=== PATIENT | male | born 1965 | race Caucasian/White ===

== ENCOUNTER → 2016-10-03 | Outpatient (CLI) | payer BC | END | disposition home or self-care (01) | LOC: LAB 08:43 | PROVIDERS: ATTEND Nurse Practitioner Occupational Health | DX: Z12.5 Encounter for screening for malignant neoplasm of prostate (principal) | CPT/HCPCS: 36415; G0103 ==

== ENCOUNTER → 2016-10-10 | Outpatient (CLI) | payer BC ==
--- NOTE | 2016-10-10 16:08 | KCIC ---
PROCEDURE Renal ultrasound. HISTORY Enlarged prostate. TECHNIQUE Renal ultrasound was performed. COMPARISON None. FINDINGS Right kidney measures at least 11.7 centimeters in length and the left 11.6 centimeters. 19 millimeter cyst with septation is noted in the left kidney inferiorly. Septation is thin. No nodular component is present. Bladder is mildly distended and grossly unremarkable. Prostate measures 4.0 x 4.1 x 4.1 centimeters, minimally indenting on the floor the bladder. Incidentally, there is fatty infiltration of the liver. IMPRESSION - Cyst with thin septation in the left kidney measuring 19 millimeters in size. Finding was described on a CT report from July 18, 2011, those images were not available at the time of dictation. - Prostate minimally indents on the floor the bladder, although measures within normal limits. Electronically signed by: Paul Alonzo MD (October 10, 2016 16:06:59)
== END | disposition home or self-care (01) ==
LOC: KCIC US 11:56
PROVIDERS: ATTEND Nurse Practitioner Occupational Health
DX: N40.1 Benign prostatic hyperplasia with lower urinary tract symptoms (principal)
CPT/HCPCS: 76770

== ENCOUNTER → 2018-01-01 | Outpatient (CLI) | payer BC | END | disposition home or self-care (01) | LOC: KCIC US 07:47 | DX: M79.661 Pain in right lower leg (principal) | CPT/HCPCS: 93971 ==

== ENCOUNTER → 2018-02-05 | Outpatient (CLI) | payer BC ==
--- NOTE | 2018-02-05 14:23 | RAD ---
MR#: [id number] Date of Study: 02/05/2018 Ordering Physician: RYAN CHISHOLM, Referring Physician: RYAN CHISHOLM, Tech: NAS Keyes, RDMS, RTR APPROVED REPORT Patient Location : OUT-PATIENT Indications Lower Extremity Pain : Bilateral Past History Diabetes Lesser Saphenous Veins (LSV) Right Thigh extension noted : No Leftt Thigh extension noted : No Right Giacomini Vein : Present : No Reflux : No Leftt Giacomini Vein : Present : No Reflux : No Accessory Veins Right Anterior Accessory Vein : Present : Yes Reflux : No Leftt Anterior Accessory Vein : Present : Yes Reflux : No Right Posterior Accessory Vein : Present : No Reflux : No Left Posterior Accessory Vein : Present : No Reflux : No Findings Grayscale images of the bilateral greater and lesser saphenous veins do not reveal any obvious eviden ce of thrombus on limited imaging. There is no evidence of reflux. Critical Notification Critical Value: No <Conclusion> Negative for reflux in the bilateral greater and lesser saphenous veins. Signed by : Shon Romero, Electronically Approved : 02/05/2018 14:23:34
--- NOTE | 2018-02-05 14:25 | RAD ---
MR#: [id number] Date of Study: 02/05/2018 Ordering Physician: RYAN CHISHOLM, Referring Physician: RYAN CHISHOLM, Tech: NAS Keyes, RDMS, RTR APPROVED REPORT Patient Location: OUT-PATIENT Indications Rest Pain:Right Numbness/Tingling Risk Factors Hypertension Diabetes VELOCITY AND DOPPLER WAVEFORM ANALYSIS RIGHT cm/secWaveformSeverity LEFT cm/secWaveform Severity pCFA 164.3TriphasicpCFA 149.9Triphasic Prof Fem Art. 95.7TriphasicProf Fem Art. 136.0Triphasic Fem Art Prox. 131.5TriphasicFem Art Prox. 123.1Triphasic Fem Art Mid. 107.4TriphasicFem Art Mid. 105.5Triphasic Fem Art Dist. 118.5TriphasicFem Art Dist. 86.1Triphasic Pop Art(Fossa) 55.5TriphasicPop Art(AK) 73.3Triphasic ARSON AND BOMB INVESTIGATOR Dist. 95.1TriphasicPTA Dist. 117.6Triphasic Per Art Dist.64.8TriphasicPer Art Dist.47.7Triphasic JEFFREY Dist. 86.8TriphasicATA Dist. 72.0Triphasic DPA 99TriphasicDPA 123Triphasic Findings Grayscale images of the bilateral lower extremity arterial vessels reveal mild intimal hyperplasia wi thout any focal obstructive plaque. Spectral waveforms and color Doppler are grossly unremarkable thr oughout the lower extremity arterial trees with triphasic waveforms noted throughout. There is three- vessel runoff below the knee. Critical Notification Critical Value: No <Conclusion> No significant lower extremity arterial disease. Signed by : Shon Romero, Electronically Approved : 02/05/2018 14:25:02
== END | disposition home or self-care (01) ==
LOC: US 07:51
PROVIDERS: ATTEND Internal Medicine Cardiovascular Disease
DX: M79.605 Pain in left leg (principal); M79.604 Pain in right leg; I10 Essential (primary) hypertension; E11.9 Type 2 diabetes mellitus without complications
CPT/HCPCS: 93925; 93970

== ENCOUNTER → 2018-02-05 | Outpatient (CLI) | payer BC ==
--- NOTE | 2018-02-05 10:03 | CARD ---
MR#: [id number] Date of Study: 02/05/2018 Ordering Physician: RYAN BRADFORD, Referring Physician: Malgorzata DELGADO: DIONNA Ontiveros APPROVED REPORT EXAM: Two-dimensional and M-mode echocardiogram with Doppler and color Doppler. Other Information Quality : AverageHR: 59bpm INDICATION Hypertension/HCVD RISK FACTORS Hypertension 2D DIMENSIONS RVDd3.0 (2.9-3.5cm)Left Atrium(2D)3.6 (1.6-4.0cm) IVSd1.1 (0.7-1.1cm)Aortic Root(2D)2.6 (2.0-3.7cm) LVDd4.4 (3.9-5.9cm)LVOT Diameter2.0 (1.8-2.4cm) PWd1.0 (0.7-1.1cm)IVSs1.2 (0.8-1.2cm) LVDs2.9 (2.5-4.0cm)FS (%) 33.7 % PWs1.6 (0.8-1.2cm)SV55.9 ml LVEF(%)62.7 (>50%) Aortic Valve AoV Peak Chuck.149.1cm/sAoV VTI32.4cm AO Peak GR.8.9mmHgLVOT Peak Chuck.66.9cm/s LVOT VTI 16.88cmAO Mean GR.5mmHg ARELIS (VMAX)1.63bu5LXX (VTI)1.70cm2 Mitral Valve MV E Swaaslph97.6cm/sMV DECEL KXMI538ki MV A Yvtngjku18.0cm/sMV FAA25xe E/A Ratio1.4MVA (PHT)4.21cm2 TDI E/Lateral E'8.5E/Medial E'11.8 Pulmonary Valve PV Peak Bnjlpvec194.0cm/sPV Peak Grad.5mmHg RVOT VTI24.4cm Tricuspid Valve TR P. Xflwciqs335wy/sRAP IARBKTZG4mnSl TR Peak Gr.32msQcIYDK88mjWe Pulmonary Vein S1 Lcyaqyfc65.6cm/sD2 Vetddypt56.5cm/s LEFT VENTRICLE The left ventricle is normal size. There is normal left ventricular wall thickness. The left ventricu lar systolic function is normal. The ejection fraction is estimated at 60%. There is normal LV segmen kisha wall motion. The left ventricular diastolic function and filling is normal for age. RIGHT VENTRICLE The right ventricle is normal size. The right ventricular systolic function is normal. ATRIA The left atrium size is normal. The right atrium size is normal. The interatrial septum is intact wit h no evidence for an atrial septal defect or patent foramen ovale as noted on 2-D or Doppler imaging. AORTIC VALVE The aortic valve is calcified but opens well. Doppler and Color Flow revealed no significant aortic r egurgitation. There is no significant aortic valvular stenosis. There is no aortic valvular vegetatio n. MITRAL VALVE The mitral valve is thickened but opens well. There is no evidence of mitral valve prolapse. There is no mitral valve stenosis. Doppler and Color Flow revealed no mitral valve regurgitation noted. TRICUSPID VALVE The tricuspid valve is normal in structure. Doppler and Color Flow revealed trace to mild tricuspid r egurgitation. There is no tricuspid valve prolapse or vegetation. There is no tricuspid valve stenosi s. PULMONIC VALVE The pulmonic valve is not well visualized. Doppler and Color Flow revealed no pulmonic valvular regur gitation. There is no pulmonic valvular stenosis. GREAT VESSELS The aortic root is normal size. The aortic root displays mild sclerocalcific changes of the aortic ro ot. The IVC is dilated and collapses >50% with inspiration. PERICARDIAL EFFUSION There is no pleural effusion. There is no evidence of significant pericardial effusion. Critical Notification Critical Value: No <Conclusion> The left ventricular systolic function is normal. The ejection fraction is estimated at 60%. There is normal LV segmental wall motion. Trace to mild tricuspid regurgitation. There is no evidence of significant pericardial effusion. Signed by : Ryan Bradford Electronically Approved : 02/05/2018 10:02:42
== END | disposition home or self-care (01) ==
LOC: ECHO 07:42
PROVIDERS: ATTEND Internal Medicine Cardiovascular Disease
DX: I36.1 Nonrheumatic tricuspid (valve) insufficiency (principal); I10 Essential (primary) hypertension
CPT/HCPCS: 93306

== ENCOUNTER → 2019-05-27 | Outpatient (CLI) | payer BC, OTHER ==
--- NOTE | 2019-05-27 10:43 | KCIC ---
5 views the cervical spine without comparison for neck strain for 2 to 3 weeks. FINDINGS: There is no fracture or acute osseous or alignment abnormality of the cervical spine. There is mild straightening of the normal cervical lordosis. There is mild degenerative disc disease at C5-6. The prevertebral soft tissues are grossly unremarkable.There may be mild neuroforaminal narrowing at C3-4 on the right. IMPRESSION: 1. No acute osseous or alignment abnormality of the cervical spine. Electronically signed by: Canelo Ford MD (05/27/2019 10:40 AM) [facility]
== END | disposition home or self-care (01) ==
LOC: KCIC 08:01
PROVIDERS: ATTEND Nurse Practitioner Family
DX: S16.1XXA Strain of muscle, fascia and tendon at neck level, initial encounter (principal); M50.322 Other cervical disc degeneration at C5-C6 level; X58.XXXA Exposure to other specified factors, initial encounter; Y93.89 Activity, other specified; Y92.89 Other specified places as the place of occurrence of the external cause; Y99.8 Other external cause status
CPT/HCPCS: 72050

== ENCOUNTER → 2019-07-05 | Outpatient (CLI) | payer OTHER ==
--- NOTE | 2019-07-05 16:09 | KCIC ---
CERVICAL SPINE WO CONTRAST DATE: 07/05/2019 2:00 PM INDICATION: Chronic neck pain with right upper extremity paresthesias TECHNIQUE: Multiplanar multisequence magnetic resonance imaging of the cervical spine was performed without administration of intravenous contrast using the standard cervical spine protocol. COMPARISON: Radiograph 05/27/2019. FINDINGS: Straightening of the cervical lordosis. No acute fracture. Mild multilevel degenerative disc desiccation and disc height loss. Degenerative edema in the articulating facets of C2-3 on the right. The spinal cord is normal in signal intensity. On the limited views of the cranial cavity and brain, the cerebellum and talisha have normal morphology and signal characteristics. No Chiari malformation. No soft tissue abnormality. Normal signal voids are present in the vertebral arteries. C2-3: Moderate right facet arthropathy. No significant spinal canal stenosis. Mild right neural foraminal narrowing. C3-4: Disc osteophyte complex. Uncovertebral hypertrophy. Mild facet arthropathy. Mild bilateral neural foraminal narrowing. No spinal canal stenosis. C4-5: Disc osteophyte complex. Uncovertebral hypertrophy. Mild facet arthropathy. Moderate to severe right neural foraminal narrowing. No spinal canal stenosis. C5-6: Disc osteophyte complex. Uncovertebral hypertrophy. Mild facet arthropathy. No significant spinal canal stenosis or neural foraminal narrowing. C6-7: Mild facet arthropathy. No significant spinal canal stenosis or neural foraminal narrowing. C7-T1: No significant spinal canal stenosis or neural foraminal narrowing. IMPRESSION: Cervical spondylosis, worst at C4-5 with moderate to severe narrowing of the right neural foramen. Electronically signed by: Jayce Salinas MD (07/05/2019 4:06 PM) [facility]
== END | disposition home or self-care (01) ==
LOC: KCIC MRI 13:35
PROVIDERS: ATTEND Nurse Practitioner Family
DX: M47.812 Spondylosis without myelopathy or radiculopathy, cervical region (principal); M48.02 Spinal stenosis, cervical region; M89.38 Hypertrophy of bone, other site; M40.292 Other kyphosis, cervical region; M12.88 Other specific arthropathies, not elsewhere classified, other specified site
CPT/HCPCS: 72141

== ENCOUNTER → 2019-08-05 | Outpatient (CLI) | payer OTHER ==
[~2019-08-05] MED LIST: ATEN25TA PO; FENO134C PO; LISI2.5T PO
--- NOTE | 2019-08-05 11:08 | PAIN ---
DATE OF SERVICE: 08/05/2019 INITIAL CONSULTATION FOR PAIN CLINIC CHIEF COMPLAINT: Neck and right upper extremity pain. HISTORY OF PRESENT ILLNESS: This is a 53-year-old male who presents with history of pain in the base of neck, right arm and upper extremity and shoulder since about 01/2019. The patient reports it is not a result of any specific injury or action he is aware of, but it has been getting worse overtime, and over the past 6 months it has been significant excruciating. The patient reports it is radiating in the base of the neck, right shoulder, right upper extremity, in the arm, mostly in the posterior deltoid and the anterior bicep, deltoid and pectoralis region, on the right side as well the patient reports stabbing, constant shooting, radiating. The patient reports it is worse with weightbearing, raising his arm over his head on his right side, repetitive motions, driving. The patient reports awaking from sleep at least 2-3 times a night, does not affect his bowel or bladder control or his ability to walk. He has had physical therapy, most recently as earlier this month for 8 weeks from [facility] in [place]. The patient reports decreased pain mildly, but still significant pain in the base of neck and right upper extremity. The patient reports that he has taken meloxicam, tramadol, ibuprofen, all of which do not decrease the pain to any significant extent. 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 He does this in the morning before he leaves and then in the evening when he gets home as well, again only temporizing the pain. The patient rates his disability rating from 0-10, 10 being the worst, as a 7 with family and home responsibilities, 9 with recreation, 10 with sexual behavior, 6 with occupation, 0 with social activity, 6 with self-care and 8 with life support activities. The patient did have MRI scan of cervical spine showing at C4-C5, mild facet arthropathy, xsljuflm-gu-svlkgs right neural foraminal narrowing. Also, C5-C6 shows mild facet arthropathy, disk osteophyte complex with cervical spondylosis worse at C4-C5 with moderate to severe narrowing of the right neural foramen. PAST MEDICAL HISTORY: Significant for hypertension, arthritis. PREVIOUS SURGERY: Include rotator cuff repair in 1990, 2000, left rotator cuff repair again and in 2013 a left elbow surgery. CURRENT MEDICATIONS: Include fenofibrate, lisinopril and atenolol. ALLERGIES: The patient has no known drug allergies. FAMILY HISTORY: Significant for no major medical problems or conditions that he lists. SOCIAL HISTORY: The patient does not drink alcohol, does not smoke. Denies any illegal, illicit or recreational drugs. He is , lives with his spouse, lives locally in [place], [place]. He works as a flatbed truck driver. REVIEW OF SYSTEMS: The patient's review of systems is positive for those items mentioned in history of present illness. All systems reviewed and otherwise negative. It is complete, full and well documented on the patient's chart. PHYSICAL EXAMINATION: VITAL SIGNS: The patient's blood pressure is 139/80, pulse 57, respirations 18, temperature 98.2 degrees Fahrenheit, height is 5 feet 9 inches, weight is 206 pounds. GENERAL: The patient is awake, alert, oriented, appropriate, very pleasant demeanor. HEENT: Shows normocephalic, atraumatic. Extraocular movements are intact and symmetrical. Oral cavity: Mucous membranes moist and pink. Dentition is intact. NECK: Shows anterior throat supple without palpable lymphadenopathy noted. Swallow reflex symmetrical. CHEST: Shows normal on inspection. Breath sounds are clear bilaterally. HEART: Shows S1, S2 clear. No murmurs auscultated. ABDOMEN: Soft, obese, nontender, nondistended. BACK: Shows spine grossly in the midline, normal-appearing cervical lordotic curvature, thoracic kyphotic curvature and lumbar lordotic curvature. Cervical paraspinous muscle shows symmetrical with inspection, on palpation shows some xlsy-uz-ywjvtjsf tenderness diffusely in the right greater than left inferior aspect of the cervical paraspinous musculature in the superior medial trapezius, but without trigger points. The patient shows very guarded rotational motion of cervical spine, especially to the right with moderate tenderness noted in the base of the neck and right shoulder, but without specific radiation. This is true with extension of the cervical spine, but not with forward flexion. Left lateral rotations performed as well past 45 degrees, but guarded also, secondary to pain. EXTREMITIES: The patient's upper extremities show deep tendon reflexes at 2+ in the biceps and triceps tendons. Motor exam is strong with legal word processor strength rated at 5/5 as is bicep and tricep flexion. Peripheral pulses are 2+ radial. No peripheral edema is noted. Upper extremities are warm and dry to touch, equal in color and appearance. Shoulder shrug is strong and intact with some moderate tenderness in the right side, but without loss of strength on resistance. This is true with abduction of shoulder to 90 degrees. Moderate tenderness in the right, but no loss of strength on resistance. SKIN: Shows warm and dry, good turgor. No edema. No sores, rashes or bruising throughout. IMPRESSION: 1. This is a 53-year-old male with about 6-month history of increasing pain, base of the neck, right upper extremity in a radicular fashion. 2. MRI scan of cervical spine as noted. 3. Hypertension. 4. Arthritis. PLAN: Options were discussed with the patient including conservative medical managements, continued physical therapies and interventional techniques and he is doing physical therapy and doing stretching exercises on his own as well, and has tried multiple anti-inflammatory medications without benefit. He would like to pursue interventional techniques. We discussed a cervical epidural steroid injection using description as well as anatomical models to describe the procedure. He did have a clinical C4-C5 radiculopathy on the right side. The patient will wait for preauthorization with insurance provider. In the meantime, we will try Medrol Dosepak. The patient was given instruction as well as side effects to be aware of with the medication and will follow up in approximately one week; we will plan on cervical epidural steroid injection, translaminar approach at the C4-C5 level at that time. LALO KENNEDY MD DR: VANGIE/jerome JOB#: [id number] / [id number]
== END | disposition home or self-care (01) ==
LOC: PNCL 08:07
PROVIDERS: ATTEND Anesthesiology
DX: M47.812 Spondylosis without myelopathy or radiculopathy, cervical region (principal); I10 Essential (primary) hypertension; M19.90 Unspecified osteoarthritis, unspecified site
CPT/HCPCS: G0463

== ENCOUNTER → 2019-08-13 | Outpatient (CLI) | payer OTHER ==
[~2019-08-13] MED LIST changes: +FENO200C PO; +IOHEXOL 180 MG/ML 10 ML VIAL. ONE; +LISI-334 PO; +METF10007 PO; +methylPREDNISolone ACETATE 40 MG/ML VIAL. ONE; +methylPREDNISolone ACETATE 80 MG/ML VIAL. ONE
--- NOTE | 2019-08-13 08:28 | PAIN ---
DATE OF SERVICE: 08/13/2019 PROGRESS NOTE FOR PAIN CLINIC DIAGNOSES: Cervical radiculopathy with cervical degenerative disk disease and cervical spondylosis. HISTORY OF PRESENT ILLNESS: The patient is a 53-year-old male who returns for followup status post initial evaluation and preauthorization for cervical epidural steroid injection. The patient has obtained that now and would like to proceed. The patient reports still significant pain in the base of neck and right shoulder and upper extremity as it has been. The patient reports no new motor or sensory deficits, no new changes, still significant pain in the base of the neck on the right side radiating to the right shoulder and arm. The patient reports it is a 6 on a scale of 10 on average and 4 at its least and 10 at its worst, as a 4 today. The patient reports it is aching, sharp, dull and tight into the right shoulder and arm. The patient reports no new motor or sensory deficits, no new bowel or bladder incontinence. The patient reports Medrol Dosepak did help fairly well first few days while he was taking it, but the pain has returned. PHYSICAL EXAMINATION: VITAL SIGNS: The patient's blood pressure is 128/71, pulse 61, respirations 16, temperature is 97.6 degrees Fahrenheit, height is 5 feet 8 inches, weight is 206 pounds. GENERAL: The patient is awake, alert, oriented, appropriate, very pleasant demeanor. HEENT: Shows normocephalic, atraumatic. Extraocular movements are intact and symmetrical. Oral cavity: Mucous membranes moist and pink. Dentition is intact. NECK: Shows anterior throat supple without palpable lymphadenopathy noted. Swallow reflex symmetrical. CHEST: Shows normal on inspection. Breath sounds clear to auscultation bilaterally. HEART: Shows S1, S2 clear. No murmurs auscultated. ABDOMEN: Soft, nontender, nondistended. No palpable organomegaly is noted. No rebound or guarding demonstrated. BACK: Shows spine grossly in the midline. Cervical paraspinous muscle shows symmetrical on inspection. On palpation shows some moderate tenderness diffusely, but only diffusely without significant radiation. The patient shows good rotational motion of cervical spine, both laterally as well as extension and flexion without significant difficulty. EXTREMITIES: Upper extremities show deep tendon reflexes 2+ in the biceps and triceps tendons. Motor exam is strong with internet retailer strength rated at 5/5 as is biceps and triceps flexion and equal and symmetrical. Peripheral pulses are 2+. No peripheral edema is noted. Options were discussed with the patient. The patient's old chart was reviewed as his current medication regimen updated. Current review of systems updated today as well. We will proceed with a cervical epidural steroid injection today with fluoroscopic guidance. Risks were again discussed including, but not limited to bleeding, infection, possibility of epidural hematoma, subsequent neurological compromise, dural puncture, headaches, spinal cord and/or nerve damage, side effects of steroid medication and poor results regarding pain control. The patient understands and wished to proceed. The patient will return to clinic in approximately 2 weeks for followup. He was counseled on return appointment, activity level and side effects to be aware of. DIAGNOSES: Cervical radiculopathy with cervical degenerative disk disease and cervical spondylosis. PROCEDURE: Cervical epidural steroid injection, translaminar approach C6-C7 level using C-arm fluoroscopic guidance under sterile prep and drape using local anesthetic. MEDICATION INJECTED: A total of 120 mg Depo-Medrol plus 5 mL of preservative-free normal saline and 2 mL of contrast. CONDITION AT DISCHARGE: Stable. The patient tolerated the procedure well, had no complications. LALO KENNEDY MD DR: VANGIE/jerome JOB#: [id number] / [id number]
== END ==
LOC: PNCL 07:36
PROVIDERS: ATTEND Anesthesiology
DX: M50.123 Cervical disc disorder at C6-C7 level with radiculopathy (principal); M47.812 Spondylosis without myelopathy or radiculopathy, cervical region
CPT/HCPCS: 62321; J1030; J1040; Q9965

== ENCOUNTER → 2019-08-19 | Outpatient (CLI) | payer OTHER ==
[~2019-08-19] MED LIST changes: -methylPREDNISolone ACETATE 40 MG/ML VIAL. ONE; -methylPREDNISolone ACETATE 80 MG/ML VIAL. ONE
--- NOTE | 2019-08-19 15:59 | PAIN ---
DATE OF SERVICE: 08/19/2019 PROGRESS NOTE FOR PAIN CLINIC DIAGNOSES: 1. Cervical radiculopathy with cervical degenerative disk disease and cervical spondylosis. 2. Post-dural puncture headache, cervical. HISTORY OF PRESENT ILLNESS: The patient is a 53-year-old male who returns for followup, last seen 08/13/2019. The patient has significant post-dural puncture headache after his last visit, which revolved over several days following the injection. We discussed this with him several days last week and over the weekend and decided to come in for a blood patch today. The patient reports still significant pain in the base of neck, headache positional, worse with sitting, standing, much better with lying down, but still significant headache with lying down as well. The patient reports the pain is a 10 on a scale of 10 at its worst over the past week and average of 10 and least at 10 as well and is a 10 today. The patient reports it is aching, constant, becoming severe, unbearable at times. The patient reports some photophobia, but only minimal. No nuchal rigidity, no fevers, good rotational motion of cervical spine. PHYSICAL EXAMINATION: VITAL SIGNS: The patient's blood pressure 154/78, pulse 67, respirations 18, temperature 97.8 degrees Fahrenheit, height is 5 feet 8 inches, weight is 203 pounds. GENERAL: The patient is awake, alert, oriented, appropriate, very pleasant demeanor. HEENT: Shows normocephalic, atraumatic. Extraocular movements are intact and symmetrical. Pupils equal, round, reactive to light. No photophobia present. Oral cavity: Mucous membranes moist and pink. Dentition is intact. NECK: Shows anterior throat supple without palpable lymphadenopathy noted. Swallow reflex symmetrical. CHEST: Shows normal on inspection. Breath sounds are clear bilaterally. HEART: Shows S1, S2 clear. BACK: Shows spine grossly in the midline. Cervical paraspinous muscle shows symmetrical on inspection, on palpation shows some abhu-pp-pvkgfsvz tenderness in the inferior aspect of the cervical paraspinous muscles bilaterally, but only diffusely. The patient does show full rotational motion of cervical spine, both laterally greater than 45 degrees right and left as well as full extension, full forward flexion with only minimal increase in pain with extension, but not with flexion or right or left lateral rotation. EXTREMITIES: Upper extremities show deep tendon reflexes 2+ in the biceps, triceps tendons. Motor exam is strong with rolloff driver strength rated at 5/5 and equal. Peripheral pulses are 2+ radial. No peripheral edema is noted. PLAN: Options were discussed with the patient. The patient's old chart was reviewed as his current medication regimen updated. Current review of systems updated today as well. We will proceed with a cervical epidural blood patch today with fluoroscopic guidance. Risks were discussed including but not limited to bleeding, infection, possibility of epidural hematoma, subsequent neurologic compromise, dural puncture, worsening of spinal headache as well as poor results regarding pain control. The patient understands and wished to proceed. The patient will return to clinic in approximately 1 week for followup, was counseled on return appointment, activity level and side effects to be aware of. DIAGNOSIS: Post-dural puncture headache. PROCEDURE: Cervical epidural blood patch under sterile prep and drape using local anesthetic with C-arm fluoroscopic guidance. MEDICATION INJECTED: A total of 5 mL of the patient's own blood from sterile transfer from right AC vein. CONDITION AT DISCHARGE: Stable. The patient tolerated the procedure well, had no complications. The patient's headache was noted to be significantly reduced about 60% immediately after the injection and prior to discharge. The patient driven home by his spouse. LALO KENNEDY MD DR: VANGIE/jerome JOB#: [id number] / [id number]
== END ==
LOC: PNCL 11:51
PROVIDERS: ATTEND Anesthesiology
DX: G44.89 Other headache syndrome (principal); M50.10 Cervical disc disorder with radiculopathy, unspecified cervical region
CPT/HCPCS: 62273; Q9965

== ENCOUNTER → 2021-01-22 | Outpatient (CLI) | payer OTHER ==
[~2021-01-22] MED LIST changes: -IOHEXOL 180 MG/ML 10 ML VIAL. ONE; -LISI-334 PO; -LISI2.5T PO; +LISI2.5T12 PO; +LISI20TA18 PO
--- NOTE | 2021-01-22 14:35 | KCIC ---
MR LUMBAR SPINE WO [id number] Date: 01/22/2021 1:05 PM Indication: LUMBAR PAIN WITH RADIATION DOWN RIGHT LEG. Pt states acute BLE numbness x 3 weeks. Frequ ent right sciatica. Comparison: None. Technique: Multi-planar multi-weighted magnetic resonance imaging of the lumbar spine was performed w ithout intravenous contrast using the standard lumbar spine protocol. FINDINGS: The lumbar spine is normally aligned. No acute fracture. Mild multilevel degenerative disc desiccatio n and disc height loss. Bone marrow signal intensity is normal. The conus terminates at a normal level. No abnormal signal is seen within the visualized distal spina l cord. No clumping of intrathecal nerve roots. Fatty filum terminale. No soft tissue abnormality in the visualized abdomen or pelvis. T12-L1: No disc bulge. No facet arthropathy. No significant spinal stenosis or neural foraminal narro wing. L1-L2: No disc bulge. No facet arthropathy. No significant spinal stenosis or neural foraminal narrow ing. L2-L3: No disc bulge. No facet arthropathy. No significant spinal stenosis or neural foraminal narrow ing. L3-L4: Disc bulge. Mild facet arthropathy. No significant spinal stenosis or neural foraminal narrowi ng. L4-L5: Disc bulge. Mild facet arthropathy. No significant spinal stenosis or neural foraminal narrowi ng. L5-S1: Disc bulge. Mild facet arthropathy. No significant spinal stenosis or neural foraminal narrowi ng. IMPRESSION: Mild lumbar spondylosis. No significant spinal canal stenosis or neural foraminal narrowing. Electronically signed by: Jayce Salinas MD (01/22/2021 2:32 PM) [id number]
== END ==
LOC: KCIC MRI 12:53
PROVIDERS: ATTEND Nurse Practitioner Family
DX: M47.817 Spondylosis without myelopathy or radiculopathy, lumbosacral region (principal); M51.27 Other intervertebral disc displacement, lumbosacral region
CPT/HCPCS: 72148